=== PATIENT | female | born 1945 | race Caucasian/White ===

== ENCOUNTER → 2023-11-05 11:31 | Outpatient (REF) | payer OTHER, SELFPAY | LOC: HWWDC 11:31 | PROVIDERS: ATTENDING PHYSICIAN Nurse Practitioner | DX: Z12.31 Encounter for screening mammogram for malignant neoplasm of breast (principal) | CPT/HCPCS: 77063; 77067 ==

== ENCOUNTER → 2024-07-14 09:32 | Outpatient (REF) | payer OTHER, SELFPAY | LOC: RCS 09:32 | PROVIDERS: ATTENDING PHYSICIAN Nurse Practitioner | DX: R07.89 Other chest pain (principal) | CPT/HCPCS: 93017 ==

== ENCOUNTER → 2024-11-05 09:52 | Outpatient (REF) | payer OTHER, SELFPAY | LOC: HWWDC 09:52 | PROVIDERS: ATTENDING PHYSICIAN Nurse Practitioner | DX: Z12.31 Encounter for screening mammogram for malignant neoplasm of breast (principal) | CPT/HCPCS: 77063; 77067 ==

== ENCOUNTER 2025-01-04 15:13 | Emergency (ER) | payer OTHER, SELFPAY ==
[2025-01-04] VITALS (7 sets, daily range): BP systolic 158–190; BP diastolic 62–81; BMI 25.6
[2025-01-04 16:17] LABS: Hematocrit 40.8 % (37.0-47.0); Hemoglobin 13.8 g/dL (12.0-16.0); Mean Corp Hgb Conc. 33.8 g/dL (33.0-37.0); Mean Corpuscular Volume 92.7 fL (81.0-99.0); Nucleated Red Blood Cells % 0 %; Platelet Count 175 10^3/uL (130-400); Red Cell Dist. Width 12.2 % (11.5-14.5)
[2025-01-04 16:46] LABS: ALT (SGPT) 35 U/L (0-35); AST (SGOT) 30 U/L (14-36); Albumin 4.6 g/dl (3.5-5.0); Alkaline Phosphatase 55 U/L (38-126); Blood Urea Nitrogen 22 mg/dl (7-17); Calcium 10.3 mg/dl (8.4-10.2); Carbon Dioxide 27 mmol/L (22-30); Chloride 106 mmol/L (98-107); Estimated Creatinine Clearance 44 ml/min; Glucose 159 mg/dl (70-99); Potassium 4.3 mmol/L (3.5-5.1); Sodium 139 mmol/L (135-145); Total Protein 6.9 g/dl (6.3-8.2); eGFR > 60.00
[2025-01-04] MEDS: NSS 1000 IV (17:20)
[2025-01-04] MEDS: REGLAN 10 MG IV (17:21)
--- NOTE | 2025-01-04 17:33 | ED.GENMED ---
History of Present Illness
General
Chief Complaint: Dizziness
Time Seen by Provider: 01/04/25 17:01
History of Present Illness
History of Present Illness:
Patient presents to the emergency department with now resolved episode of sudden vertigo. Occurred while she was driving around 3:30 PM. States she suddenly got very dizzy, had pressure in her right ear and heard some whooshing in the right ear.
She had multiple episodes of vomiting and went to her daughter's house who brought her to the emergency department. She states that symptoms are improving at this time. She denies any focal numbness weakness or tingling. Denies any difficulty
with speech. Denies any blurry vision. States that she has had episodes of vertigo in the past however this was more severe.
Past History
Past History
ED Past Medical History: Asthma, COPD, Fibromyalgia, HTN, Hypercholesterolemia, Hypothyroidism and Psychiatric (Anxiety)
ED Past Surgical History: Appendectomy, ( X 2), Gynecological (Tubal) and Orthopedic (Right rotator cuff)
Social History
Tobacco: Former smoker
Alcohol: Occasional
Personal:
Living: alone
Phy Exam
Physical Exam
Physical Exam:
GENERAL APPEARANCE: NAD, well developed/ well nourished
EYES lids/conjunctiva normal
EARS/NOSE/THROAT Mucous membranes moist, uvula midline without oral pharyngeal erythema, exudate or swelling
HEAD/NECK normocephalic atraumatic, neck is supple.
RESPIRATORY respiratory effort normal, speaks in full sentences, no accessory muscle use. Lungs clear to auscultation without rhonchi, wheezes, rales
CARDIAC Regular rate and rhythm, no edema.
ABDOMINAL Soft, ND/NT.
MUSCLES/EXTREMITIES No abnormal range of motion, no swelling.
SKIN Warm, pink and dry. No rashes
NEUROLOGICAL patient is tired appearing but awake and conversant. She is oriented x 3. Cranial nerves II through XII are intact without any nystagmus. No inducible nystagmus with Elliot-Hallpike. Sensation intact to light touch throughout. 5 out
of 5 strength in all extremities. No ataxia or dysmetria. Normal [id number]. Normal gait.
Course
Orders/Labs/Results
Orders:
Orders
01/04/25 16:04
Cardiac Monitoring- Treatment ONCE
IV Insert/Care/Rem.- Treatment PRN
O2 Therapy [RESP] Urgent
Titrate/Wean O2 to maintain O2 sat greater than (%): 90
Special Instructions: Maintain sats >/=90%
Pulse Ox/spot Check [RESP] Urgent
Quantity: 1
Special Instructions: ON ROOM AIR
01/04/25 16:08
Complete Blood Count/With Diff Urgent
Comprehensive Metabolic Panel Urgent
01/04/25 16:09
EKG [Electrocardiogram (*1)] Urgent
Reason for Study: Vertigo / Dizzy
EKG- Treatment ONCE
01/04/25 17:15
CT Head & Neck Angio W/wo IV Urgent
Comment:
Reason For Exam: vertigo
0.9% Sodium Chloride 1000 ml [Nss] 1,000 ml IV BOLUS
Metoclopramide [Reglan] 10 mg IV NOW STA
01/04/25 20:08
Meclizine [Antivert] 25 mg PO NOW STA
Abnormal Lab Results
01/04/25
16:08
WBC 11.6 H 10^3/uL
(4.8-10.8)
MCH 31.4 H pg
(27.0-31.0)
MPV 11.0 H fL
(7.4-10.4)
Abs Immat Gran (auto) 0.1 H 10^3/uL
(0-0.05)
Absolute Neuts (auto) 9.1 H 10^3/uL
(1.4-6.5)
Neutrophils % 78.4 H %
(42.2-75.2)
Lymphocytes % 14.4 L %
(20.5-51.1)
BUN 22 H mg/dl
(7-17)
Glucose 159 H mg/dl
(70-99)
Calcium 10.3 H mg/dl
(8.4-10.2)
01/04/25 16:08
01/04/25 16:08
Vital Signs
Initial and Last Documented VS:
Initial Vital Signs
Temp Pulse Resp BP Pulse Ox
97.7 F 74 16 158/77 100
01/04/25 15:27 01/04/25 15:27 01/04/25 15:27 01/04/25 15:27 01/04/25 15:27
Last Documented Vital Signs
Temp Pulse Resp BP Pulse Ox
97.7 F 83 10 174/76 99
01/04/25 15:27 01/04/25 20:00 01/04/25 17:00 01/04/25 20:00 01/04/25 20:00
*Pulse Oximetry
SaO2: 98
Oxygen Mode of Delivery: Room air
Patient hypoxic: no
*Critical Care Note
Total Time (30-74mins, 75-104mins- exclusive of procedures): Not Applicable
ED Attending Note
ED Attending Note
ED Attending Note:
Patient with sudden onset of vertigo that is now resolving. She has no neurologic deficits on exam. However given she is on Eliquis and her age, will CT scan her head to rule out bleed or large posterior vessel occlusion. Will treat
symptomatically.
Patient symptoms have resolved at this time. She is ambulatory without ataxia. Doubt central cause of vertigo. Instructed her to follow-up with an typesetting machine tender as soon as possible. Will prescribe meclizine.
-
Portions of this chart may have been created with voice recognition software.� Occasional wrong word or��sound alike� substitutions may have occurred due to the inherent limitations of voice recognition software.
Discharge Plan
Departure
Patient Disposition: Home (Routine Discharge)
Date of Disposition: 01/04/25
Time of Disposition: 20:02
Patient with high blood pressure during this ER visit?: Yes
Discharge Problem:
Vertigo
Instructions: Vertigo (a Type of Dizziness) (DC)
Prescriptions:
New
meclizine 25 mg tablet
25 mg PO BID PRN (Reason: dizziness) Qty: 14 0RF
No Action
enalapril maleate 5 mg Tablet
5 mg PO DAILY
famotidine [Pepcid] 40 mg Tablet
40 mg PO HS
amitriptyline 50 mg Tablet
62 mg PO HS
levothyroxine 50 mcg Tablet
50 mcg PO DAILY
cholecalciferol (vitamin D3) [Vitamin D3] 10 mcg (400 unit) Capsule
2,000 unit PO DAILY
rosuvastatin [Crestor] 5 mg Tablet
5 mg PO DAILY
Mucinex 1,200 mg Tablet Extended Release 12hr
1,200 mg PO HS
Belsomra 5 mg Tablet
5 mg PO HS
albuterol sulfate 90 mcg/actuation Hfa Aerosol Inhaler
1 inh INHALATION ONCE PRN (Reason: shortness of breath)
budesonide-formoterol [Symbicort] 80-4.5 mcg/actuation Hfa Aerosol Inhaler
2 puff INHALATION BID
oxycodone 5 mg Tablet
5 mg PO Q4HPRN PRN (Reason: moderate to severe pain) Qty: 18 0RF
clindamycin HCl 150 mg Capsule
450 mg PO TID Qty: 15 0RF
docusate sodium 100 mg Capsule
100 mg PO BID Qty: 30 0RF
bisacodyl [OneLAX Bisacodyl] 10 mg Suppository
10 mg LA DAILYPRN PRN (Reason: constipation) Qty: 12 0RF
Eliquis 5 mg tablet
5 mg PO BID Qty: 60 0RF
Rx Instructions:
take 10mg evening 01/05
starting 01/06 take 5mg BID
lorazepam 0.5 mg Tablet
0.25 mg PO HS PRN (Reason: anxiety) Qty: 3 0RF
polyethylene glycol 3350 17 gram Powder In Packet
17 g PO DAILY Qty: 30 0RF
magnesium hydroxide 400 mg/5 mL Suspension
30 ml PO [id number] PRN (Reason: constipation) Qty: 355 0RF
sennosides [senna] 8.6 mg Tablet
17.2 mg PO HS Qty: 1 0RF
nifedipine 30 mg Tablet Extended Release
30 mg PO DAILY Qty: 30 0RF
ondansetron 4 mg tablet,disintegrating
4 mg PO Q8H PRN (Reason: nausea and vomiting) Qty: 1 0RF
Referrals:
Argentina Almeida CRNP [Family Provider, Family Practice]
Antonio Campbell MD [Active, Otology]
Interventions
Interventions:
*Risk Screen - Suicide Last Done: 01/04/25 16:03
*General Assessment Last Done: 01/04/25 16:03
*Neglect/Abuse Screening Last Done: 01/04/25 16:03
*ED- Fall Risk Assessment Last Done: 01/04/25 16:03
*ED COVID-19 Vaccine History Last Done: 01/04/25 16:03
*Nursing Disposition Last Done: 01/04/25 20:29
ED- Neurological Assessment Last Done: 01/04/25 16:28
Discharge Date and Time
Discharge Date/Time: 01/04/25 20:30
Print Language: LEBANESE
[2025-01-04] MEDS: ANTIVERT 25 MG PO (20:18)
== END 2025-01-04 20:30 | disposition home or self-care (01) ==
LOC: EMR 15:13
PROVIDERS: Emergency Medicine; EMERGENCY PHYSICIAN Emergency Medicine; FAMILY PHYSICIAN Nurse Practitioner
DX: R42 Dizziness and giddiness (principal); J44.89 Other specified chronic obstructive pulmonary disease; M79.7 Fibromyalgia; I10 Essential (primary) hypertension; E78.00 Pure hypercholesterolemia, unspecified; E03.9 Hypothyroidism, unspecified; F41.9 Anxiety disorder, unspecified; Z87.891 Personal history of nicotine dependence; Z90.49 Acquired absence of other specified parts of digestive tract
CPT/HCPCS: 99284; 96374; 96361; 70496; 70498; 80053; 85025; 93005; Q9967

== ENCOUNTER → 2025-03-30 12:31 | Outpatient (REF) | payer OTHER, SELFPAY | LOC: PAVMRI 12:31 | PROVIDERS: ATTENDING PHYSICIAN Physician Assistant; FAMILY PHYSICIAN Nurse Practitioner; REFERRING PHYSICIAN Otolaryngology | DX: H90.A21 Sensorineural hearing loss, unilateral, right ear, with restricted hearing on the contralateral side (principal) | CPT/HCPCS: 70553; A9575 ==